=== PATIENT | female | born 1970 | race Caucasian/White ===

== ENCOUNTER 2018-11-13 20:39 | Emergency (ER) | payer SELFPAY, OTHER ==
[2018-11-14] MEDS: METHOCARBAMOL 750 MG TAB PO (03:37)
[2018-11-14] MEDS: IBUPROFEN 600 MG TAB PO (03:37)
[2018-11-14] MEDS: ACETAMINOPHEN 325 MG TAB PO (03:37)
[2018-11-14] MEDS: ONDANSETRON (ODT) 4 MG TAB ODT (05:40)
[2018-11-14] MEDS: HYDROCODONE/APAP (5/325) TAB PO (05:41)
== END 2018-11-14 06:02 | disposition home or self-care (01) ==
LOC: FTE 20:39
DX: S89.91XA Unspecified injury of right lower leg, initial encounter (principal); S01.112A Laceration without foreign body of left eyelid and periocular area, initial encounter; S69.91XA Unspecified injury of right wrist, hand and finger(s), initial encounter; V43.52XA Car driver injured in collision with other type car in traffic accident, initial encounter
CPT/HCPCS: 29125; 73130-RT; 73562; 99284-25

== ENCOUNTER → 2018-11-16 | Emergency (ER) | payer SELFPAY ==
[2018-11-16] MEDS: TETRACAINE 0.5% 4 ML OPH LEFT EYE (07:08)
[2018-11-16] MEDS: FLUORESCEIN STRIP LEFT EYE (07:08)
== END | disposition home or self-care (01) ==
LOC: FTE 06:07
DX: S05.92XA Unspecified injury of left eye and orbit, initial encounter (principal); V03.10XA Pedestrian on foot injured in collision with car, pick-up truck or van in traffic accident, initial encounter
CPT/HCPCS: 70480; 81025; 99284-25